=== PATIENT | male | born 1965 | race Caucasian/White ===

== ENCOUNTER 2016-11-14 23:42 | Emergency (ER) | payer OTHER ==
[2016-11-14 23:54] VITALS: BP 129/78; PULSE 80; TEMP 98.9; BMI 29.8
--- NOTE | 2016-11-15 00:43 | PDOC ---
History of Present Illness - General Chief Complaint: Pain, Acute Stated Complaint: PAIN RIGHT FOOT NEAR GREAT TOE Time Seen by Provider: 11/14/16 23:53 - History of Present Illness Initial Comments: This 51-year-old man with a history of asthma and occasional foot pain presents with a few day history of right first toe MTP joint pain. No known trauma or over used associated with the area. Patient states that he has been using different types of shoes over the summer but no other area of the foot hurts. He was diagnosed as having gout when he had pain in this area but also was told at one point that it was not gout. He has never had elevation of his uric acid level as far as he knows.. He denies any other joint pain/redness/swelling now Patient states that he does not eat a large amount of red meat but had some a few nights ago. He does occasionally drink wine. Past History - Past Medical History Allergies/Adverse Reactions: Allergies Allergy/AdvReac Type Severity Reaction Status Date / Time No Known Allergies Allergy Verified 11/14/16 23:44 Home Medications: Ambulatory Orders Albuterol Sulfate Inhaler - [Ventolin Hfa Inhaler -] 1 - 2 inh PO DAILY PRN 02/09 Mometasone/Formoterol [Dulera 200 Mcg/5 Mcg Inhaler] 2 inh IH BID 02/05/15 Zolpidem Tartrate [Ambien] 10 mg PO HS 02/05/15 Colchicine [Colcrys -] 0.6 mg PO BID #14 tablet 11/15/16 Anemia: No Asthma: Yes Cancer: Yes (BASAL CELLS AND MELANOMA) Cardiac Disorders: No CVA: No COPD: No CHF: No Dementia: No Diabetes: No GI Disorders: No Disorders: No HTN: No Hypercholesterolemia: No Liver Disease: No Seizures: No Thyroid Disease: No - Surgical History Abdominal Surgery: Yes (UMBILICAL AND RIGTH INGUINAL HERNIA) Appendectomy: Yes Cardiac Surgery: No Cholecystectomy: No Lung Surgery: No Neurologic Surgery: No Orthopedic Surgery: No - Psycho/Social/Smoking Cessation Hx Anxiety: No Suicidal Ideation: No Smoking History: Never smoked Have you smoked in the past 12 months: No Information on smoking cessation initiated: No Hx Alcohol Use: No Drug/Substance Use Hx: No Substance Use Type: Alcohol Hx Substance Use Treatment: No Review of Systems - Review of Systems Able to Perform ROS?: Yes Comments:: 12 point review of systems is negative except for what is noted in the history of present illness *Physical Exam - Vital Signs Last Vital Signs Temp Pulse Resp BP Pulse Ox 98.9 F 80 16 129/78 99 11/14/16 23:50 11/14/16 23:50 11/14/16 23:50 11/14/16 23:50 11/14/16 23:50 - Physical Exam Comments: GENERAL: Adult male, alert and oriented 3, in no acute distress EXTREMITIES: Right foot Moderate point tenderness/mild edema/no erythema great toe MTP joint; no other joint inflammation noted No mid foot or hindfoot tenderness or edema Extremity exam is otherwise normal NEUROLOGICAL: Cranial nerves II through XII grossly intact. Normal speech. No focal neurological deficits. MUSCULOSKELETAL: Back non-tender to palpation, no CVA tenderness SKIN: Warm, Dry, normal turgor, no rashes or lesions noted. Progress Note - Progress Note Progress Note: This 51-year-old man presents with nontraumatic first MTP joint pain; he has had this inflammation in the past. Although diagnosis of gout has not formally been made, previous physicians have suggested that he may have the disease. On exam, the MTP joint of the right great toe is exquisitely tender and mildly edematous. There is no erythema present. This is likely acute gout, although it is possible that it is forefoot strain secondary to change in footwear. Of note, the patient has significant history of stomach irritation with use of NSAIDs. Therefore, we will just give 1 dose of 60 mg Toradol IM. A prescription for colchicine 0.6 mg will be sent to the patient's pharmacy. Patient is traveling to join his family in [place] on vacation tomorrow. He will pick colchicine prescription up at his pharmacy prior to traveling. If he has persistent severe pain while on vacation, he should go to the nearest medical facility for treatment. Otherwise, he should follow-up with his general doctor when he returns home from vacation. *DC/Admit/Observation/Transfer Diagnosis at time of Disposition: Foot pain, right - Discharge Dispostion Disposition: HOME Condition at time of disposition: Stable - Prescriptions Prescriptions: Colchicine [Colcrys -] 0.6 mg PO BID #14 tablet - Patient Instructions Printed Discharge Instructions: Low-Purine Diet Additional Instructions: Drink plenty of water colchicine as prescribed if you have recurrence of pain Limit intake of alcohol, seafood and red meat Return here if you have severe swelling/redness/pain Follow-up with your general doctor as discussed when he returned home from vacation
[2016-11-15] MEDS ORDERED: KETOROLAC TROMETHAMINE 60 MG/2 ML VIAL IM ONE (01:00)
[2016-11-15] MEDS ORDERED: KETOROLAC TROMETHAMINE 60 MG/2 ML VIAL ONE (01:08)
== END 2016-11-15 01:14 | disposition home or self-care (01) ==
LOC: FER 23:42
PROC: 3E0233Z Introduction of Anti-inflammatory into Muscle, Percutaneous Approach (ICD-10-PCS; principal; 2016-11-14)
DX: M79.671 Pain in right foot (principal); J45.909 Unspecified asthma, uncomplicated; Z85.820 Personal history of malignant melanoma of skin
CPT/HCPCS: 99281-25

== ENCOUNTER 2018-04-11 21:58 | Emergency (ER) | payer OTHER ==
--- NOTE | 2018-04-11 22:01 | PDOC ---
History of Present Illness - History of Present Illness Initial Comments: 04/11/18 22:19 Patient is a 52 year old male with a significant past medical history of recurrent gout who presents to the ED with complaints of right foot pain that began earlier this week. Patient reports experiencing increased right foot pain that began earlier this week prompting him to come into the ED for further evaluation. He reports being [place] the last [place] and states he has not been able to take care of his pain. Patient states he believed it to be gout initially but states the pain does not feel like his past gout experiences. Denies chest pain, sob. Denies nausea, vomiting, Denies fevers, chills. Denies dysuria, hematuria. Denies trauma to affected area. Denies loss of consciousness. Denies constipation, diarrhea. Denies contact with sick individuals, out of state travelling. Denies any other symptoms. Allergies: None Social history: No smoking. No alcohol. No illicit drugs. Surgical history: None PMD: None Adult ROS General: No fevers or chills, no weakness, no weight loss HEENT: No change in vision. No sore throat, No ear pain Cardiovascular: No chest pain or shortness of breath Respiratory:No cough, or wheezing. Gastrointestinal: No nausea, vomiting, diarrhea or constipation, No rectal bleeding Genitourinary: No dysuria, hematuria, or frequency Musculoskeletal: +Right foot pain. Neurologic: No headache, vertigo, dizziness or loss of consciousness Psychiatric: No depression Skin: No rashes or easy bruising Endocrine: No increased thirst or abnormal weight change Allergic: No skin or latex allergy All other systems reviewed and normal Basic PE GENERAL: The patient is awake, alert, and fully oriented, in no acute distress. HEAD: Normal with no signs of trauma. EYES: Pupils equal, round and reactive to light, extraocular movements intact, sclera anicteric, conjunctiva clear. EXTREMITIES: +Increased warmth and swelling in area to right great toe. +Mid tenderness to palpation. +Mild erythema to the area. No bony tenderness Normal range of motion, no edema. NEUROLOGICAL: Normal speech, normal gait. PSYCH: Normal mood, normal affect. SKIN: Warm, Dry, normal turgor, no rashes or lesions noted. <Beto Chu - Last Filed: 04/11/18 22:19> - General History Source: Patient Exam Limitations: No Limitations - History of Present Illness Initial Comments: 04/11/18 22:47 <Kj Borden I - Last Filed: 04/11/18 22:55> - General Chief Complaint: Pain, Acute Stated Complaint: RIGHT FOOT PAIN Time Seen by Provider: 04/11/18 22:01 Past History <Beto Chu - Last Filed: 04/11/18 22:19> - Past Medical History Anemia: No Asthma: Yes Cancer: Yes (BASAL CELLS AND MELANOMA) Cardiac Disorders: No CVA: No COPD: No CHF: No Dementia: No Diabetes: No GI Disorders: No Disorders: No HTN: No Hypercholesterolemia: No Liver Disease: No Seizures: No Thyroid Disease: No - Surgical History Abdominal Surgery: Yes (UMBILICAL AND RIGTH INGUINAL HERNIA) Appendectomy: Yes Cardiac Surgery: No Cholecystectomy: No Lung Surgery: No Neurologic Surgery: No Orthopedic Surgery: No - Suicide/Smoking/Psychosocial Hx Smoking History: Never smoked Have you smoked in the past 12 months: No Hx Alcohol Use: No Drug/Substance Use Hx: No Substance Use Type: Alcohol Hx Substance Use Treatment: No <Kj Borden I - Last Filed: 04/11/18 22:55> - Past Medical History Allergies/Adverse Reactions: Allergies Allergy/AdvReac Type Severity Reaction Status Date / Time No Known Allergies Allergy Verified 04/11/18 22:00 Home Medications: Ambulatory Orders Albuterol Sulfate Inhaler - [Ventolin Hfa Inhaler -] 1 - 2 inh PO DAILY PRN 02/09 Zolpidem Tartrate [Ambien] 10 mg PO HS 02/05/15 Allopurinol [Zyloprim -] 100 mg PO DAILY 04/11/18 Naproxen [Naprosyn] 500 mg PO BID #28 tablet 04/11/18 *Physical Exam - Vital Signs Last Vital Signs Temp Pulse Resp BP Pulse Ox 98.4 F 84 18 136/94 100 04/11/18 22:03 04/11/18 22:03 04/11/18 22:03 04/11/18 22:03 04/11/18 22:03 <Beto Chu - Last Filed: 04/11/18 22:19> Moderate Sedation - Procedure Monitoring Vital Signs: Procedure Monitoring Vital Signs Temperature 98.4 F 04/11/18 22:03 Pulse Rate 84 04/11/18 22:03 Respiratory Rate 18 04/11/18 22:03 Blood Pressure 136/94 04/11/18 22:03 O2 Sat by Pulse Oximetry (%) 100 04/11/18 22:03 <Beto Chu - Last Filed: 04/11/18 22:19> ED Treatment Course - Medications Given in the ED: ED Medications Discontinued Medications Generic Name Dose Route Start Last Admin Trade Name Henrry PRN Reason Stop Dose Admin Ketorolac Tromethamine 60 mg 04/11/18 22:05 04/11/18 22:08 Toradol Injection - IM 04/11/18 22:06 60 mg ONCE ONE Administration <Beto Chu - Last Filed: 04/11/18 22:19> *DC/Admit/Observation/Transfer - Attestations Scribe Attestion: 04/11/18 22:19 Documentation prepared by Beto Chu, acting as medical photographer for Kj Borden MD. <Beto Chu - Last Filed: 04/11/18 22:19> - Discharge Dispostion Decision to Admit order: No <Kj Borden I - Last Filed: 04/11/18 22:55> Diagnosis at time of Disposition: Gout attack Qualifiers: Gout site: foot Gout etiology: unspecified cause Laterality: right Qualified Code(s): M10.9 - Gout, unspecified - Discharge Dispostion Disposition: HOME Condition at time of disposition: Stable - Prescriptions Prescriptions: Naproxen [Naprosyn] 500 mg PO BID #28 tablet - Patient Instructions Additional Instructions: for the pain take naprosyn one tablet twice a day with food don't take on an empty stomach. Return to the emergency department immediately with ANY new, persistent or worsening symptoms. Continue any medications as previously prescribed by your physician. You should follow up with your primary doctor as soon as possible regarding today's emergency department visit. . Please make sure your doctor reviews the results of your emergency evaluation. Thank you for coming to the Emergency Department today for your care. It was a pleasure to see you today. Please note that your evaluation is INCOMPLETE until you follow-up with your doctor.
[2018-04-11] MEDS ORDERED: KETOROLAC TROMETHAMINE 60 MG/2 ML VIAL IM ONE (22:05)
[2018-04-11 22:06] VITALS: BP 136/94; PULSE 84; TEMP 98.4; BMI 35.2
[2018-04-11] MEDS ORDERED: KETOROLAC TROMETHAMINE 60 MG/2 ML VIAL ONE (22:06)
== END 2018-04-11 23:00 | disposition home or self-care (01) ==
LOC: FER 21:58
PROC: 3E0233Z Introduction of Anti-inflammatory into Muscle, Percutaneous Approach (ICD-10-PCS; principal; 2018-04-11)
DX: M10.9 Gout, unspecified (principal)
CPT/HCPCS: 73630-TC-RT-FY; 99281-25